=== PATIENT | female | born 1980 | race Caucasian/White ===

== ENCOUNTER 2017-02-16 19:34 | Emergency (ER) | payer OTHER ==
[2017-02-16 20:01] VITALS: RESP 20
[2017-02-16 20:04] VITALS: PULSE 89; O2SAT 95
[2017-02-16] MEDS ORDERED: ONDANSETRON 4 MG ODT BU ONE (20:21)
[2017-02-16] MEDS ORDERED: SODIUM CHLORIDE 0.9% 1000ML 1,000 ML IV ONE ×2 (20:21→22:02)
[2017-02-16] MEDS ORDERED: ONDANSETRON HCL 4 MG/2 ML SOL ONE (20:40)
[2017-02-16 20:52] LABS: HEMATOCRIT 45 % (35-47); MEAN CORPUSCULAR VOLUME 83 fL (81-99)
[2017-02-16 21:02] LABS: CALCIUM 8.7 mg/dl (8.5-10.1); POTASSIUM 3.2 mMol/L (3.5-5.1)
[2017-02-16 21:04] LABS: BASOPHILS % (MANUAL) 0 % (0-3); EOSINOPHILS % (MANUAL) 0 % (0-9); LYMPHOCYTES % (MANUAL) 22 % (10-50); NORMAL RBCS PRESENT
[2017-02-16] MEDS ORDERED: POTASSIUM CHLORIDE 10 MEQ TER PO ONE (22:02)
[2017-02-16] MEDS ORDERED: POTASSIUM CHLORIDE 10 MEQ TER ONE (22:05)
[2017-02-16 22:37] VITALS: BP 117/66; TEMP 97.2
== END 2017-02-16 23:32 | disposition home or self-care (01) | DRG 392 ==
LOC: ED 19:34
DX: K52.9 Noninfective gastroenteritis and colitis, unspecified (principal)
CPT/HCPCS: 36415; 80048; 85007; 85027; 96365; 96366; 99284; 99285; J2405